=== PATIENT | male | born 1955 | race Hispanic/Latino ===

== ENCOUNTER → 2016-06-12 | Outpatient (CLI) | payer OTHER ==
--- NOTE | 2016-06-13 09:29 | US ---
EXAM DESCRIPTION: Soft Tissue, extremity CLINICAL HISTORY: R/O TENDON INJURY VS HEMATOMA VS ABSCESS NEAR ANKLE COMPARISON: None Available. TECHNIQUE: Transcutaneous scanning: Two-dimensional and Doppler modes. Scanning performed by the technologist and Dr. Patino. FINDINGS: Small palpable lump on the lateral inferior right lower leg. Two-dimensional scanning showed subcutaneous edema. Nonvascular. No disruption of the underlying fascia. Peroneus muscles appear intact. IMPRESSION: 1. Subcutaneous edema where mass palpable. 2. No definite muscle injury. Consider MRI scan if pain and swelling persist. Electronically signed by: Andrew Patino MD 06/13/2016 9:28 AM CDT
== END ==
LOC: US 14:50
DX: S93.401A Sprain of unspecified ligament of right ankle, initial encounter (principal); S80.11XA Contusion of right lower leg, initial encounter; R60.0 Localized edema